=== PATIENT | female | born 1990 | race African-American/Black ===

== ENCOUNTER 2016-06-01 11:58 | Emergency (ER) | payer OTHER ==
[~2016-06-01 11:58] MED LIST: FIORICET 50-321 EACH PO; IBUPROFEN800 MG PO
== END 2016-06-01 12:28 | disposition home or self-care (01) ==
LOC: CFTX 11:58
DX: L02.415 Cutaneous abscess of right lower limb (principal)
CPT/HCPCS: 10060; 99283